=== PATIENT | female | born 1985 | race Caucasian/White ===

== ENCOUNTER 2018-12-19 11:07 | Outpatient (CLI) | payer OTHER ==
[2018-12-19 13:52] LABS: RUPTURE FETAL MEMBRANES NEGATIVE (NEGATIVE)
[2018-12-19] MEDS: ACETAMINOPHEN 325 MG TAB PO (14:43)
[2018-12-19] MEDS: LACTATED RINGER'S 1,000 ML IV (14:53)
== END 2018-12-19 18:16 | disposition home or self-care (01) ==
LOC: OBT 11:07 → L-D 11:08 → OBT 18:16
DX: O26.892 Other specified pregnancy related conditions, second trimester (principal); Z3A.25 25 weeks gestation of pregnancy; R51 Headache; R20.0 Anesthesia of skin
CPT/HCPCS: 36415; 76815; 76816; 76817; 84112; 93970; 96360